=== PATIENT | male | born 1940 | race Caucasian/White ===

== ENCOUNTER → 2017-04-16 | Outpatient (CLI) | payer MEDICARE | END | disposition home or self-care (01) | LOC: LAB.O 12:07 | DX: D64.9 Anemia, unspecified (principal); E87.1 Hypo-osmolality and hyponatremia ==

== ENCOUNTER → 2018-09-18 | Outpatient (CLI) | payer MEDICARE ==
[~2018-09-18] MED LIST: IPRATROPIUM/ALBUTEROL 3 ML VIAL NEB ONE
== END ==
LOC: RESP 13:45
PROVIDERS: ATTEND Nurse Practitioner
DX: R06.02 Shortness of breath (principal)
CPT/HCPCS: 94060; J7620

== ENCOUNTER → 2019-02-17 | Outpatient (CLI) | payer MEDICARE ==
--- NOTE | 2019-02-17 09:34 | RAD ---
EXAM DESCRIPTION: Pelvis CLINICAL HISTORY: 78 years Male, M25.552 COMPARISON: None. FINDINGS: Single AP view of the pelvis was obtained. The right greater trochanter is excluded. No pelvic fracture. Mild bilateral hip joint space narrowing. The sacroiliac joint spaces are well-maintained. Mild degenerative changes in the pubic symphysis. No soft tissue abnormality. IMPRESSION: Mild degenerative changes in the hips and pubic symphysis, otherwise unremarkable exam. Electronically signed by: Solitario Dalton MD 02/17/2019 9:32 AM CDT
--- NOTE | 2019-02-17 09:35 | RAD ---
EXAM DESCRIPTION: Hip,Left 2 Views CLINICAL HISTORY: 78 years Male, M25.552 COMPARISON: None. FINDINGS: Two views of the left hip show no acute fracture or malalignment. No focal bone lesion or femoral head contour abnormality. Minimal left hip joint space narrowing. No soft tissue abnormality. IMPRESSION: Mild degenerative changes, otherwise unremarkable exam. Electronically signed by: Solitario Dalton MD 02/17/2019 9:32 AM CDT
--- NOTE | 2019-02-17 11:53 | MRI ---
Study: MRI of the Left Hip. Indication: PAIN IN LEFT HIP Technique: Multiplanar, multi sequence MRI of the left hip was obtained without intravenous contrast. Comparison: None Findings: No acute fracture or osteonecrosis of the left hip. Grade 4 chondral loss of the majority of the left hip joint noted with prominent subcortical cystic change anterior superior acetabulum. Tiny joint line osteophytes noted. Tiny joint effusion. Labral degeneration suspected. Tendinosis bilateral gluteus minimus/medius tendon insertions. Mild bilateral greater trochanter bursal edema. Tendinosis bilateral hamstring tendon origins. No high-grade pelvic tendon tear. Moderate pubic symphysis osteoarthritis. Partial visualization of mild bilateral sacroiliac joint osteoarthritis. At least moderate right hip osteoarthritis suspected as well. 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 Additional findings as above. Electronically signed by: Kamar Last MD 02/17/2019 11:51 AM CDT
== END ==
LOC: RAD 08:21
PROVIDERS: ATTEND Orthopaedic Surgery
DX: M16.0 Bilateral primary osteoarthritis of hip (principal)

== ENCOUNTER 2019-02-21 05:41 | Day surgery (SDC) | payer MEDICARE ==
[2019-02-21] MEDS ORDERED: PROPOFOL 200 MG/20 ML VIAL IV ONE (07:00)
[2019-02-21] MEDS ORDERED: LIDOCAINE 1% 10 ML VIAL INJ ONE (07:00)
[2019-02-21] MEDS ORDERED: LACTATED RINGERS 1,000 ML ONE (07:58)
[2019-02-21] MEDS ORDERED: HYDROcodone 5MG/APAP 325MG 1 EA TAB ONE (09:08)
[2019-02-21] MEDS ORDERED: BUPIVACAINE 0.25% INJ 30 ML VIAL INJ ONE (10:54)
[2019-02-21] MEDS ORDERED: methylPREDNISolone ACETATE 80 MG/ML VIAL ONE (10:55)
[2019-02-21] MEDS ORDERED: LIDOCAINE 1% W/ EPINEPHRINE 20 ML VIAL INJ ONE (10:55)
[2019-02-21] MEDS ORDERED: fentaNYL CITRATE INJ 50 MCG/ML AMP ONE (11:27)
[2019-02-21 13:55] VITALS: BP 160/78; TEMP 98.7; O2SAT 98
--- NOTE | 2019-02-24 11:01 | RAD ---
EXAM DESCRIPTION: Fluoroscopy Up to 1Hr CLINICAL HISTORY: 78 years Male, INTRAARTICULAR INJECTION COMPARISON: None. FINDINGS: Total fluoroscopy time not known, one fluoroscopic image. Single intraprocedural fluoroscopic view of the right hip was obtained for guidance purposes only. A needle projects over the soft tissues along the medial aspect of the right hip with its tip at the medial/inferior femoral neck cortex. IMPRESSION: Limited exam performed for guidance purposes only. No apparent intraprocedural complication. Electronically signed by: Solitario Dalton MD 02/24/2019 10:59 AM CDT
--- NOTE | 2019-03-07 16:46 | OP ---
DATE OF PROCEDURE: 02/21/19 PREOPERATIVE DIAGNOSIS: 1. Hip pain. POSTOPERATIVE DIAGNOSIS: 1. Hip pain. PROCEDURE: 1. Intraarticular injection of the hip. SURGEON: Ganesh Powell M.D. BUSINESS PROCESS REPRESENTATIVE: Rafael Aguilar CST, SA-C ANESTHESIA: Conscious sedation. COMPLICATIONS: None. FINDINGS: Minor arthritis, otherwise unremarkable. INDICATION FOR PROCEDURE: Mr. Moreira has a history of severe hip pain which had been getting progressively worse. He tried doing local injection of steroid on the lateral aspect of the hip in clinic which failed. We are now doing an intraarticular injection to try to help to see if we can manage his pain that way. After discussing the risks, benefits, and alternatives to that he has given informed consent for that. PROCEDURE: The patient was brought to the Operating Room and placed in supine position. Conscious sedation was administered, and the leg was flexed, abducted and externally rotated. The groin was prepped, and fluoroscopic imaging was used to confirm needle placement into the hip joint through a medial portal. Once placement had been confirmed, a combination of lidocaine and Depo-Medrol were injected into the joint. After injection, the needle was withdrawn. Pressure was held on the injection site. A sterile band-aid was placed. The patient was then taken back to the Day Surgery Unit. POSTOPERATIVE INSTRUCTIONS: The patient will be weight-bearing as tolerated. The patient will followup with us in about a week. #[id number] MTDD
== END 2019-02-21 12:50 | disposition home or self-care (01) ==
LOC: AMB 05:41
PROVIDERS: ATTEND Orthopaedic Surgery
DX: M16.12 Unilateral primary osteoarthritis, left hip (principal); Z88.1 Allergy status to other antibiotic agents; Z79.899 Other long term (current) drug therapy
CPT/HCPCS: 01200; 20610; 36415; 76000; 80307; 81001; 87070; J1030; J3010; J3490; J7120

== ENCOUNTER → 2019-02-26 | Outpatient (CLI) | payer MEDICARE ==
--- NOTE | 2019-02-28 09:32 | MRI ---
EXAM DESCRIPTION: Lumbar Spine w/o Contrast : Magnetic Resonance Imaging. CLINICAL HISTORY: RADICULOPATHY COMPARISON: None. TECHNIQUE: Multiplanar, multiple standard sequences, non contrast MRI, lumbar spine. FINDINGS: L5-S1: Minimal disc desiccation with disc space maintained. Minimal arthrosis of the right posterior facet minimal right paracentral disc bulge. Mild canal narrowing to the right of midline. Mild left foraminal narrowing and moderate right foraminal narrowing. L4-L5: Disc desiccation with disc space maintained. Trace posterior bulge. Left facet hypertrophic arthrosis with thickening of the flavum ligament. Canal is patent. Facet hypertrophy on the left and left intraforaminal disc bulge encroaching on the left foramen which is stenotic. Right foramen is patent. L3-L4: Disc desiccation with disc space preserved. Anterior endplate mild spondylosis. No posterior disc bulge. Posterior elements are negative. Mild foraminal narrowing with canal patent. L2-L3: Significant disc space loss with diffuse spondylosis. Anterior disc remnant bulging with posterior disc remnant minimal bulge, along with endplate. Disc spur complex encroaching on the right foramen with minimal narrowing. Same on the left foramen. No significant canal narrowing. Within the central L1 vertebral body, is a complex lesion with bright signal more on T2 than T1. Also bright signal on inversion recovery. The margin of the lesion is low signal are not well-defined. 2.1 x 2.4 x 2.2 cm. Marrow surrounding this lesion is slightly hyperintense on T2 sequence. Inferior aspect of the lesion appears to communicate with the inferior L1 endplate which is discontinuous. Bright T2 and inversion recovery in this endplate cleft. L1-L2: Anterior disc bulge and endplate ridging. Disc is desiccated with bright T2 and inversion recovery signal inferior to the endplate cleft described above. Right paracentral disc bulge narrowing the canal and right foramen. Left foramen is patent. T12-L1: Normal signal in the disc with disc space preserved. No posterior bulging. Bilateral foramina are patent. Minimal mid lumbar levoscoliosis. Paravertebral soft tissues large cyst inferior left kidney.. Normal marrow signal in the remaining vertebral bodies and the posterior elements. Vertebral bodies are not compressed at any level. IMPRESSION: 1. Complex partially fluid signal lesion in the central L1 vertebral body which appears to communicate with the inferior endplate and possibly the disc space. Marrow edema surrounding the lesion. Possibilities include bone infarct, Schmorl's node, infarcted hemangioma, myelitis, or necrotic primary or metastatic tumor. Consider follow-up MRI scan with gadolinium IV contrast. Also consider CT scan without and with IV contrast. 2. Hypertrophic left L4-L5 facet arthrosis and thickened ligaments along with bulging left disc resulting in left foraminal stenosis. Possible compromise left L4 nerve root. 3. Severe disc space loss at L2-L3 with anterior and posteriorly bulging disc remnant. 4. Cystic lesion in the inferior left kidney. Consider follow-up ultrasound if there are clinical findings of renal disease. Electronically signed by: Rafael Manzanares MD 02/28/2019 9:30 AM CDT
== END ==
LOC: MRI 11:28
PROVIDERS: ATTEND Orthopaedic Surgery
DX: M51.16 Intervertebral disc disorders with radiculopathy, lumbar region (principal); M47.26 Other spondylosis with radiculopathy, lumbar region; N28.9 Disorder of kidney and ureter, unspecified

== ENCOUNTER → 2019-02-28 | Outpatient (CLI) | payer MEDICARE ==
--- NOTE | 2019-02-28 15:42 | CT ---
TECHNIQUE: Axial images of the lumbar spine were obtained with multiple reconstructions provided. Images were obtained prior to and following intravenous contrast administration. CLINICAL HISTORY PROVIDED: LOW BACK PAIN COMPARISON: February 26, 2019 FINDINGS: Five lumbar type vertebral bodies are present. Alignment: Normal. No acute subluxation. Geographic Bone Lesion: Redemonstrated lesion arising from the inferior endplate of the L1 vertebral body which measures 2.1 x 1.7 cm, sagittal image 43. This finding likely reflects an acute Schmorl's node in correlation with the recent MRI. Fracture: None present. Paraspinal Soft Tissues/ Retroperitoneum: Diffuse atherosclerotic disease. Normal caliber abdominal aorta. Benign left renal cyst. T12/L1: No significant abnormality. L1/2: Degenerative disc disease better demonstrated by MRI. Vacuum disc phenomenon. No significant osseous central canal stenosis. Mild right neural foraminal narrowing. L2/3: Disc space narrowing with endplate degenerative change. Posterior disc bulge osteophyte complex mild bilateral neural foraminal narrowing. L3/4: Symmetric diffuse disc bulge. No significant central canal or neural foraminal narrowing. L4/5: Symmetric diffuse disc bulge. No significant central canal or neural foraminal narrowing. L5/S1: No significant abnormality. IMPRESSION: 1. Redemonstrated L1 vertebral body lesion which most likely reflects an acute Schmorl's node (which may be symptomatic). 2. Stable multilevel acquired degenerative changes of lumbar spine. Electronically signed by: Lit Rich MD 02/28/2019 3:40 PM CDT
== END ==
LOC: LAB.O 09:58
PROVIDERS: ATTEND Orthopaedic Surgery
DX: M47.896 Other spondylosis, lumbar region (principal); M51.86 Other intervertebral disc disorders, lumbar region